=== PATIENT | female | born 1950 ===

== ENCOUNTER 2023-03-26 06:30 | Day surgery (SDC) | payer OTHER ==
[~2023-03-26] VITALS: Ht 152.4 cm; Wt 83.0 kg
[~2023-03-26 06:30] MED LIST: COZAAR25 MG PO; DAILY MULTIVIT1 EAC4 PO; HUMULIN 70100 UNIT/2 SUBCUTANEO; JARDIANCE25 MG PO; LIPITOR20 MG PO; METFORMIN HCL500 M3 PO
[2023-03-26] MEDS ORDERED: IBU600 MG PO (13:48)
== END 2023-03-26 17:10 | disposition home or self-care (01) ==
LOC: CIR.AMB 06:30
PROVIDERS: ATTEND Obstetrics & Gynecology Gynecology
DX: C54.1 Malignant neoplasm of endometrium (principal); N95.0 Postmenopausal bleeding; Z20.822 Contact with and (suspected) exposure to COVID-19; Z88.0 Allergy status to penicillin; E11.9 Type 2 diabetes mellitus without complications; I10 Essential (primary) hypertension; E78.5 Hyperlipidemia, unspecified